=== PATIENT | female | born 2005 | race Caucasian/White ===

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

== ENCOUNTER 2024-06-04 11:02 | Outpatient (AMB) | payer OTHER, SELFPAY ==
--- NOTE | 2024-06-04 11:01 | MHC.PC.OV ---
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 Intake Note: New patient visit Insulation Board Back Tender Required: No Is last menstrual period known: No Allergies No Known Allergies [No Known Allergies*] Allergy (Verified 06/04/24 11:23) Medication List - Last Reconciled 06/04/24 by Amina Velez, GROUP SALES COORDINATOR-BC levetiracetam mg PO vit-iron fum-folic ac 66 mg iron- 1 mg tabs PO Tobacco use date assessed: 06/04/24 Dental Screening Dental Screen Date: 06/04/24 Did you have a dental visit in the last 12 months?: Yes Did you have a dental problem in the last 6 months where you did not have access to dental care?: No Was dental information given to patient?: Patient has dentist HPI HPI Comments History of Present Illness Details 18-year-old female with migraine with aura, mild persistent asthma, acne, constipation, MDD, epilepsy Social: return to work on Tuesday @ [employer]. Family hx: son Jagdish 02/2024 Surgery - tonsils and wisdom teeth Health Maintenance: ? PAP annual visit Fall 2023 Dr Johnson ? 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 Last November 2023, restarted driving; Routine f/u Neuro neuro also manages migraine which are controlled w/o meds. cont to be ffd by Derm for acne MDD feels well controlled w/ counselor w/o meds. denies PPD sx. Did see Cards x 1 during , reports rule out done and no need to f/u. Asthma - reports was an issue in childhood,no recent issues. does not have CAMILO and does not feel a need for this @ this time Has had one period since having baby, currently breast feeding, sexually active w/o protection. home preg test negative 1 week ago. Plan offered and declined in office preg test. edu about irregular bleeding during breast feeding cont care w/ team along w/ current meds RTO 1 year CPE or sooner as needed. PFSH Medical History (Updated 06/04/24 @ 12:58 by LEDA Ivy) Constipation Mild persistent asthma Acne Surgical History No pertinent past surgical history Family History Mother No problems noted. 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 1. Little interest or pleasure in doing things: not at all 2. Feeling down, depressed, or hopeless: not at all 3. Trouble falling or staying asleep, or sleeping too much: not at all 4. Feeling tired or having little energy: not at all 5. Poor appetite or overeating: not at all 6. Feeling bad about yourself - or that you are a failure or have let yourself or your family down: not at all 7. Trouble concentrating on things, such as reading the newspaper or watching television: not at all 8. Moving or speaking so slowly that other people could have noticed. Or the opposite - being so fidgety or restless that you have been moving around a lot more than usual: not at all 9. Thoughts that you would be better off or of hurting yourself in some way: not at all Total score: 0 Depression Screening Interpretation: Negative Depression Screening Done: Yes 10619 - PHQ-9 Billing: Yes Source: Developed by Drs. Chris Dolan, Neetu Coffman, Leonardo Michelle and colleagues, with an educational delrois from [employer]. Thrive Questionnaire Date Thrive assessed: 06/04/24 I am a: Patient What is your living situation today?: I have a steady place to live Within the past 12 months, did the food you bought not last and you didn't have the money to get more?: Never true Within the past 12 months, did you worry whether your food would run out before you got money to buy more?: Never true Do you have trouble paying for medicines?: No Do you have trouble getting transportation to medical appointments?: No Do you have trouble paying your heating and electricity bill?: No Do you have trouble taking care of your child, family member or friend?: No Do you have trouble with day-to-day activities such as bathing, preparing meals, shopping, managing finances, etc.?: No Are you currently unemployed and looking for a job?: No Are you interested in more education?: No Please select the resources that you would like help with: None Currently or been in a relationship where the following occur: No concerns reported THRIVE Score: 0 AUDIT C Alcohol Use Questionnaire (AUDIT-C) 1. How often do you have a drink containing alcohol?: Never 3. How often do you have six or more drinks on one occasion?: Never Total Score: 0 Score Reviewed/Action Taken: Yes CECILE-7 AMB Questionnaire CECILE-7 Date CECILE - 7 assessed: 06/04/24 Feeling nervous, anxious, or on edge: 0 = Not at all Not being able to stop or control worryin = Not at all Worrying too much about different things: 0 = Not at all Trouble relaxin = Not at all Being so restless that it is hard to sit still: 0 = Not at all Becoming easily annoyed or irritable: 0 = Not at all Feeling afraid as if something awful might happen: 0 = Not at all Total CECILE-7 score (0-4 normal; 5-9 mild; 10-14 moderate; 15-21 severe): 0 Source: Developed by Drs. Chris Dolan, Neetu Coffman, Leonardo Michelle and colleagues, with an educational deloris from [employer]. CECILE-7 Assessment Billing CECILE-7 Assessment Tool: CECILE-7 Assessment 39427 ACT Questionnaire In the past 4 weeks, how much of the time did your asthma keep you from getting as much done at work, school or at home?: None of the time During the past 4 weeks, how often have you had shortness of breath?: Not at all During the past 4 weeks, how often did your asthma symptoms wake you up at night or earlier than usual in the morning?: Not at all During the past 4 weeks, how often have you had to use your rescue inhaler or nebulizer medication?: Not at all How would you rate your asthma control during the past 4 weeks?: Completely controlled ACT Interpretation: Negative Score: 25 Review of Systems Const Details: Constitutional: Denies fever. Skin: Denies rash. Eye: Denies eye pain. ENMT: Denies sore throat and nasal congestion. Respiratory: Denies shortness of breath and cough. Gastrointestinal: Denies nausea, vomiting or abdominal pain. Cardiovascular: Denies chest pain and syncope. Genitourinary: Denies dysuria. Musculoskeletal: Denies back pain and extremity pain. Neurologic: Denies headaches, confusion, and weakness. Psychiatric: Denies suicidal thoughts and substance abuse. Allergy/ Immunologic: Denies impaired immunity. Physical exam (Primary Care) Vital Signs: Last Vital Signs Temp 98.6 F 06/04/24 11:12 Pulse 76 06/04/24 11:12 Resp 12 06/04/24 11:12 BP 102/64 06/04/24 11:12 Pulse Ox 96 06/04/24 11:12 Oxygen Delivery Method Room Air 06/04/24 11:12 BMI result Body Mass Index 27.1 BMI Assessment/Plan discussion: High BMI High, discussed plan: lifestyle Tobacco/Smoking Status: Tobacco use Status Tobacco use date assessed 06/04/24 06/04/24 11:13 Patient Tobacco Use Status Never used Tobacco 06/04/24 11:13 e-Cigarette/Vaping Use Never Used 06/04/24 11:13 PHQ-9: PHQ-9 Score PHQ-9: Total score 0 06/04/24 11:23 Depression Screening Interpretation: Negative Thrive Assessment: Date of Thrive Assessment Date Thrive assessed 06/04/24 06/04/24 11:13 Currently or been in a relationship where the following occur: No concerns reported Const Other: General: Well developed, well nourished, in no acute distress. Appears stated age. Head: Normocephalic, atraumatic. Eyes: Pupils are equal, round and reactive to light and accommodation. Conjunctivae are clear. Vision grossly normal. Ears: TMs clear AU, EACS WNL Nose: Patent, without discharge. Mouth: There are no ulcers or lesions noted. No inflammation, no post nasal drip, no plaques nor exudates. Neck: Supple, no adenopathy or thyromegaly. Lungs: Clear to auscultation bilaterally. No rales, rhonchi or wheeze noted. Good air flow in all patel. Heart: Regular rate and rhythm. No murmurs, click, rubs or gallops are noted. Abdomen: Bowel sounds present in all quadrants. The abdomen is soft, nontender, with no masses or organomegaly noted. No hernias are noted. Musculoskeletal: Joints are nontender, without swelling, redness, or effusions. Range of motion is observed to be normal. Pulses: Peripheral pulses are equal and palpable bilaterally. Extremities: No clubbing, cyanosis nor edema is noted. Neurologic: Gait and station normal. Cranial Nerves 2-12 intact. Motor strength grossly symmetrical and intact. No sensory loss. Balance normal. Skin: No rashes, ulcers, or lesions noted. Turgor is good. Skin color is good. Hair and nails are without abnormalities. Psych: Normal eye contact, affect and mood appropriate, and normal interactions. Patient is alert and appropriate to context. Assessment and Plan Assessment & Plan (1) Encounter for general adult medical examination without abnormal findings: Code(s): Z00.00 - Encounter for general adult medical examination without abnormal findings (2) MDD (major depressive disorder), recurrent episode: Code(s): F33.9 - Major depressive disorder, recurrent, unspecified Qualifiers: Major depression episode severity: mild Qualified Code(s): F33.0 - Major depressive disorder, recurrent, mild (3) Epilepsy: Code(s): G40.909 - Epilepsy, unspecified, not intractable, without status epilepticus Qualifiers: Epilepsy type: unspecified Intractability: not intractable Status epilepticus: without status epilepticus Qualified Code(s): G40.909 - Epilepsy, unspecified, not intractable, without status epilepticus (4) Mild persistent asthma: Code(s): J45.30 - Mild persistent asthma, uncomplicated Qualifiers: Asthma complication type: unspecified Qualified Code(s): J45.30 - Mild persistent asthma, uncomplicated (5) Migraine with aura: Code(s): G43.109 - Migraine with aura, not intractable, without status migrainosus Qualifiers: Status migrainosus presence: without status migrainosus Intractability: not intractable Qualified Code(s): G43.109 - Migraine with aura, not intractable, without status migrainosus (6) Acne: Code(s): L70.9 - Acne, unspecified Qualifiers: Acne type: acne vulgaris Qualified Code(s): L70.0 - Acne vulgaris (7) BMI 27.0-27.9,adult: Code(s): Z68.27 - Body mass index [BMI] 27.0-27.9, adult (8) Oligomenorrhea: Code(s): N91.5 - Oligomenorrhea, unspecified Qualifiers: Oligomenorrhea type: secondary Qualified Code(s): N91.4 - Secondary oligomenorrhea Patient Instructions: Walk-In Care (Urgent Care): We Make it Easy Walk-in for urgent medical issues such as: ? Seasonal Allergies ? Insect Bites ? Cough ? Diarrhea ? Acute Asthma Attacks ? Back, Knee or Joint Pain ? Ear Infection ? Fever without a Rash ? Headaches ? Nausea ? [place] Eye, Rash or Skin Irritation ? Sore Throat ? Sports Physicals ? Vomiting Most insurances are accepted. Patients do not need to be part of the [facility] to seek care at the walk-in clinic. Locations [facility] , [place] [address] ? [phone] [facility] Walk-In Care in [place] provides services to ages 18 and over. Open Tuesday-Tuesday: 8 a.m. to 5 p.m. and Tuesday: 9 a.m. to 3 p.m.* *Hours may vary due to staffing availability. To confirm Walk-In Care hours in [place], please call [phone]. [address] [place] [id number] ? [phone] [facility] Walk-In Care in [place] provides services to ages 12 and over. Open Tuesday-Tuesday: 8 a.m. to 5 p.m. Hours may vary due to staffing availability. To confirm Walk-In Care hours in [place], please call [phone]. LABORATORY SERVICES: [facility] [place] Primary Location [address] [place] [address] Tuesday through Tuesday 6:00 AM ? 5:00 PM Tuesday 7:00 AM ? 11:00 AM* [phone] The [facility] is centrally located near the front entrance of the [facility] for easy outpatient access. Convenient parking is provided for outpatients. *Hours may vary due to staffing availability. To confirm Laboratory hours for any location, please call [phone]. Offsite Location For your convenience, we offer offsite laboratory draw stations at the following locations: [address] [place] [address] ? [facility] [address], [address] Tuesday through Tuesday 7:30 AM ? 1:00 PM* [phone] *Hours may vary due to staffing availability. To confirm Laboratory hours for any location, please call [phone]. [place] ? [address] Tuesday through Tuesday 6:00 AM ? 3:30 PM* Tuesday 6:30 AM ? 3 PM* [phone] *Hours may vary due to staffing availability. To confirm Laboratory hours for any location, please call [phone]. [address] [facility] Tuesday through Tuesday 7:30 AM ? 4:00 PM* [phone] *Hours may vary due to staffing availability. To confirm Laboratory hours for any location, please call [phone] [place] [address] Tuesday through 9:00 AM ? 4:00 PM* *Hours may vary due to staffing availability. To confirm Laboratory hours for any location, please call [phone]. Appointments are not necessary. Walk-ins are welcome. Like all the departments throughout the [facility], our Lab undergoes frequent reviews to ensure the quality and accuracy of test results, and our staff takes special pride in its status as a nationally accredited facility. Patient Portal: ONE PATIENT. ONE RECORD. BETTER CARE. [facility] has a fully integrated, cutting-edge mobile electronic health information system that has revolutionized the way we care for our patients and manage our organization. This system improves communication and coordination enabling us to provide safe, higher-quality care, and an overall positive experience for staff and patients. Our first priority, as always, is to deliver the highest quality care possible. The system is running in the background supporting that priority. This portal is for all [facility] services and practices. If you are experiencing any technical difficulties with enrolling or logging into the Patient Portal please complete the [facility] Patient Portal Technical Support Form. [facility] now offers a new secure on-line interactive tool for patients to review their health information ? Patient Portal. This interactive web portal will enable patients and their families to take an active role in their care by providing easy, secure access to their health information via the internet. The Patient Portal provides patients with instant access to their health information, including laboratory results, medications, allergies, demographic information, visit history, and more. In addition to managing their own care, parents and health care proxies with authorized consent will appreciate the ability to access the records of those individuals for whom they provide care. Please note: if you wish to gain access (Proxy) to another patient?s portal, you will be required to come to the Medical Records Department in person at [facility]. Both the patient giving proxy access and the proxy will need to provide photo identification and complete the appropriate authorization. The Patient Portal also allows track their appointments online. The [facility] Patient Portal also saves patients time by allowing them to submit updates to their demographic and contact information prior to their visits. Portal email notifications will also alert patients to any new activity on their portal, such as test results and new appointments. In order to initially enroll in the [facility] Patient Portal, you will need to enter some required information including the following: ? your [facility] Medical Record number ? your personal home email address ? name ? date of Please note: In order to enroll in the [facility] Patient Portal, we need to have your email address on file in your electronic medical record. The email address needs to be specific for one person (yourself) in order for your Portal enrollment to be successful. You can update your email address in person with our Registration staff when you are registering for a hospital visit. Otherwise, you will need to come to the Health Information Management (Medical Records) Department at [facility]. We are open from Tuesday ? Tuesday from 7:30 a.m. ? 4:30 p.m. You will be required to present a photo id. Once you have successfully enrolled in the Patient Portal, you will receive a one-time user id and password for the Portal, sent to your email address. This will allow you to log into the Patient Portal within 99 hrs and reset your own logon id and password, and define personal security questions. Once your permanent login and password have been set, you can log into the [facility] Patient Portal at any time via the blue button above or from the Portal Logon button on any page of the [facility] website. [facility] encourage all of our patients to enroll in Patient Portal as it presents a valuable opportunity for patients and their families to actively participate in their care and stay healthy Welcome to [facility]. We look forward to working with you. Health screenings for women You should visit your health care provider from time to time, even if you are healthy. The purpose of these visits is to: Screen for medical issues Assess your risk for future medical problems Encourage a healthy lifestyle Update vaccinations and other preventive care services Help you get to know your provider in case of an illness Information Even if you feel fine, you should still see your provider for regular checkups. These visits can help you avoid problems in the future. For example, the only way to find out if you have high blood pressure is to have it checked regularly. High blood sugar and high cholesterol levels also may not have any symptoms in the early stages. A simple blood test can check for these conditions. There are specific times when you should see your provider or receive specific health screenings. The [place] Preventive Services Task Force publishes a list of recommended screenings. Below are screening guidelines for women ages 18 to 39. BLOOD PRESSURE SCREENING Your blood pressure should be checked at least once every 3 to 5 years if: Your blood pressure is in the normal range (top number less than 120 mm Hg and bottom number less than 80 mm Hg) You don't have risk factors for high blood pressure Ask your provider if you need your blood pressure checked more often if: The top number is 120 to 129 mm Hg or the bottom number is 70 to 79 mm Hg You have diabetes, heart disease, kidney problems, are overweight, or have certain other health conditions You have a first-degree relative with high blood pressure You are Black You had high blood pressure during a If the top number is 130 mm Hg or greater or the bottom number is 80 mm Hg or greater, this is considered stage 1 hypertension. Schedule an appointment with your provider to learn how you can reduce your blood pressure. Watch for blood pressure screenings in your area. Ask your provider if you can stop in to have your blood pressure checked. BREAST CANCER SCREENING Experts do not agree about the benefits of breast self-exams in finding breast cancer or saving lives. Talk to your provider about what is best for you. A screening mammogram is not recommended for most women under age 40. Your provider may discuss and recommend mammograms, MRI scans, or ultrasounds if you have an increased risk for breast cancer, such as: A mother or sister who had breast cancer at a young age (most often starting screening earlier than the age the close relative was diagnosed) You carry a high-risk genetic marker CERVICAL CANCER SCREENING Cervical cancer screening should start at age 21 years unless your provider advises otherwise. After the first test: Women ages 21 through 29 should have a Pap test every 3 years. Exoprts do not agree on whether HPV testing is recommended for this age group. Women ages 30 through 65 should be screened with either a Pap test every 3 years or the HPV test every 5 years or both tests every 5 years (called cotesting ). Women who have been treated for precancer (cervical dysplasia) should continue to have Pap tests for 20 years after treatment or until age 65, whichever is longer. If you have had your uterus and cervix removed (total hysterectomy), and you have not been diagnosed with cervical cancer or precancer (high grade cervical neoplasia), you do not need cervical cancer screening. CHOLESTEROL SCREENING Cholesterol screening should begin at: Age 45 for women with no known risk factors for coronary heart disease Age 20 for women with known risk factors for coronary heart disease Repeat cholesterol screening should take place: Every 5 years for women with normal cholesterol levels More often if changes occur in lifestyle (including weight gain and diet) More often if you have diabetes, heart disease, kidney problems, or certain other conditions DIABETES SCREENING You should be screened for diabetes starting at age 35 and then repeated every 3 years if you have no risk factors for diabetes. Screening may need to start earlier and be repeated more often if you have other risk factors for diabetes, such as: You have a first degree relative with diabetes. You are overweight or have obesity. You have high blood pressure, prediabetes, or a history of heart disease. Screening for diabetes should be done if you are planning to become and you are overweight and have other risk factors such as high blood pressure. DENTAL EXAM Go to the dentist once or twice every year for an exam and cleaning. Your dentist will evaluate if you need more frequent visits. EYE EXAM Have an eye exam every 5 to 10 years before age 40. If you have vision problems, have an eye exam every 2 years or more often if recommended by your provider. You should have an eye exam that includes an examination of your retina (back of your eye) at least every year if you have diabetes. IMMUNIZATIONS Commonly needed vaccines include: Flu shot: get one every year. COVID-19 vaccine: ask your provider what is best for you. Tetanus-diphtheria and acellular pertussis (Tdap) vaccine: have one at or after age 19 as one of your tetanus-diphtheria vaccines if you did not receive it as an adolescent. Tetanus-diphtheria: have a booster (or Tdap) every 10 years. Varicella vaccine: receive 2 doses if you never had chickenpox or the varicella vaccine. Hepatitis B vaccine: receive 2, 3, or 4 doses, depending on your exact circumstances. Measles, mumps, and rubella (MMR) vaccine: receive 1 to 2 doses if you are not already immune to MMR. Your provider can tell you if you are immune. Ask your provider about the human papillomavirus (HPV) vaccine if: You have not received the HPV vaccine in the past You have not completed the full vaccine series (you should catch up on this shot) Ask your provider if you should receive other immunizations if you have certain health problems that increase your risk for some diseases such as pneumonia. INFECTIOUS DISEASE SCREENING Women who are sexually active should be screened for chlamydia and gonorrhea up until age 25. Women 25 years and older should be screened for chlamydia and gonorrhea if at high risk. Screening for hepatitis C: All adults ages 18 to 79 should get a one-time test for hepatitis C. people should be screened at every . Screening for human immunodeficiency virus (HIV): All people ages 15 to 65 should get a one-time test for HIV. Depending on your lifestyle and medical history, you may also need to be screened for infections such as syphilis and HIV, as well as other infections. PHYSICAL EXAM All adults should visit their provider from time to time, even if they are healthy. The purpose of these visits is to: Screen for disease Assess your risk of future medical problems Encourage a healthy lifestyle Update your vaccinations and other preventive care services Maintain a relationship with a provider in case of an illness Your height, weight, and BMI should be checked at every exam. During your exam, your provider may ask you about: Depression and anxiety Diet and exercise Alcohol and tobacco use Safety issues, such as using seat belts, smoke detectors, and intimate partner violence Your medicines and risk for interactions SKIN SELF-EXAM Your provider may check your skin for signs of skin cancer, especially if you're at high risk, such as if you: Have had skin cancer before Have close relatives with skin cancer Have a weakened immune system OTHER SCREENING Talk with your provider about colon cancer screening if you have a strong family history of colon cancer or polyps, or if you have had inflammatory bowel disease or polyps yourself. Routine bone density screening of women under 40 is not recommended. Coding Level of Care Code Est Pt Prev Care 18-39y(60549) Diagnoses Encounter for general adult medical examination without abnormal findings Z00.00 Mild episode of recurrent major depressive disorder F33.0 Major depression episode severity: mild Nonintractable epilepsy without status epilepticus, unspecified epilepsy type G40.909 Epilepsy type: unspecified Intractability: not intractable Status epilepticus: without status epilepticus Mild persistent asthma, unspecified whether complicated J45.30 Asthma complication type: unspecified Migraine with aura and without status migrainosus, not intractable G43.109 Status migrainosus presence: without status migrainosus Intractability: not intractable Acne vulgaris L70.0 Acne type: acne vulgaris BMI 27.0-27.9,adult Z68.27 Secondary oligomenorrhea N91.4 Oligomenorrhea type: secondary Additional Codes CECILE-7 Assessment Billing - CECILE-7 Assessment Tool: CECILE-7 Assessment [id number] ([id number])
[2024-06-04 11:12] VITALS: BP 102/64; PULSE 76; RESP 12; TEMP 37; O2SAT 96; BMI 27.1
== END 2024-06-04 11:39 | disposition home or self-care (01) ==
PROVIDERS: PCP Nurse Practitioner Family; Visit Provider Nurse Practitioner Family
DX: Z00.00 Encounter for general adult medical examination without abnormal findings (principal); F33.0 Major depressive disorder, recurrent, mild; G40.909 Epilepsy, unspecified, not intractable, without status epilepticus; J45.30 Mild persistent asthma, uncomplicated; G43.109 Migraine with aura, not intractable, without status migrainosus; L70.0 Acne vulgaris; Z68.27 Body mass index [BMI] 27.0-27.9, adult; N91.4 Secondary oligomenorrhea
CPT/HCPCS: 99395

== ENCOUNTER 2024-07-25 08:53 | Outpatient (AMB) | payer OTHER, SELFPAY ==
--- NOTE | 2024-07-25 09:09 | A.OFFPC_ITS ---
Vital Signs 07/25/24 09:11 Height 5 ft 6 in Weight 200 lb 4 oz BMI 32.3 BP 110/70 Blood Pressure Location Rt brachial Position Sitting Pulse 58 Pulse Source Pulse Oximeter Pulse Oximetry (%) 98 Oxygen Delivery Method Room Air Intake Visit Reasons: Low blood sugar Intake Note: Patient is here to follow up on low blood sugar. Cut Off Operator Scorer Required: No Parole Or Probation Officer: Not Required per policy Accompanied by: Self / Same As Patient Allergies No Known Allergies [No Known Allergies*] Allergy (Verified 07/25/24 09:10) Medication List - Last Reconciled 07/25/24 by Amina Velez, WEATHERSEAL TECHNICIAN-BC levetiracetam mg PO vit-iron fum-folic ac 66 mg iron- 1 mg tabs PO Tobacco use date assessed: 07/25/24 Dental Screening Dental Screen Date: 06/04/24 HPI HPI Comments History of Present Illness Details 18-year-old female with migraine with au ra, mild persistent asthma, acne, constipation, MDD, epilepsy Here today with concerns for low blood sugar. She does not have a personal history of diabetes. She reports that these episodes started in November of 2023 when she was hospitalized for a seizure. She reports that the symptoms she experiences do feel like seizure auras, however the symptoms do not ever result in a seizure. During the episode in November when she was hospitalized, her blood sugar was tested and was told that it was very low and was treated successfully with food. Since this time she has had intermittent episodes, at 1st rare, now occurring more often. The symptoms are feeling dizzy, sick to stomach and inability to focus. They occur at the same time each day which is between 5184-0803. Last episode 2-3 days ago, treated w/ lemonade and in 15 minutes felt better. This is first time she has tried eating/drinking something to resolve these sx. Random glucose done today, 88 mg/dl hemoglobin A1c done in the office today 4.9% LMP remains irregular, home preg test negative. Breast feeding. Denies changes in wt, diet. Reports normal eating and drinking. Exam Awake alert oriented, no acute distress PERRLA Regular rate and rhythm Lung sounds clear to auscultation bilat Neuro exam within normal limits Plan Recommended to check some labs. She reports that each time that she has labs she has a seizure and has to go to work. She also is fearful of getting labs related to the occurrence of seizures. Be that as it may, we will start with home glucose monitoring. Advised to check blood glucose at the time of her symptoms. Also advised to keep a diary of any events such as prolonged fasting, timing in relation to last meal, etc.. I would like to see her back in 2 weeks' time to follow up on these symptoms, sooner as needed. This note is constructed using voice recognition software. While every effort has been made to ensure accuracy in tie in hand, still errors may have been included Sometimes, these errors may affect the content or meaning of the given sentence . Total time spent caring for the patient today was 30 minutes. This includes time spent before the visit reviewing the chart, time spent during the visit, and time spent after the visit on documentation [facility] Medical History (Updated 07/25/24 @ 09:41 by Amina Velez, [facility]) Constipation Mild persistent asthma Acne Surgical History No pertinent past surgical history Family History (Updated 07/25/24 @ 09:10 by DAR Moe) Mother No problems noted. 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 Chris Dolan, Neetu Coffman, Leonardo Michelle and colleagues, with an educational deloris from [employer]. Physical exam (Primary Care) Vital Signs: Last Vital Signs Pulse 58 07/25/24 09:11 BP 110/70 07/25/24 09:11 Pulse Ox 98 07/25/24 09:11 Oxygen Delivery Method Room Air 07/25/24 09:11 BMI result Body Mass Index 32.3 Tobacco/Smoking Status: Tobacco use Status Tobacco use date assessed 07/25/24 07/25/24 09:20 Patient Tobacco Use Status Never used Tobacco 07/25/24 09:20 e-Cigarette/Vaping Use Never Used 07/25/24 09:20 Thrive Assessment: Date of Thrive Assessment Date Thrive assessed 06/04/24 07/25/24 09:20 Results AMB Random Glucose (hemocue) AMB Random Glucose (hemocue) 88 mg/dL Last Edit by DAR Moe on 07/25/24 09:24 AMB Hemoglobin A1c AMB Hemoglobin A1c 4.9 % Last Edit by DAR Moe on 07/25/24 09:31 Results Reviewed Results Reviewed: Laboratory Last Values Random Glu (Clinic) 88 mg/dL 07/25/24 09:08 Hgb A1c (Clinic) 4.9 % (4.0-6.0) 07/25/24 09:08 Assessment and Plan Assessment & Plan (1) Hypoglycemia: Code(s): E16.2 - Hypoglycemia, unspecified Orders: Orders AMB Hemoglobin A1c Today Z13.9 - Encounter for screening, unspecified AMB Random Glucose (hemocue) Today Z13.9 - Encounter for screening, unspecified Medications: New blood sugar diagnostic (FreeStyle Lite Strips) As directed 100 ea 11RF E16.2 - Hypoglycemia, unspecified lancets (FreeStyle Lancets) As directed 100 ea 11RF E16.2 - Hypoglycemia, u nspecified blood-glucose meter (FreeStyle Lite Meter kit) As directed 1 ea 0RF E16.2 - Hypoglycemia, unspecified Coding Level of Care Code Est Pt Level 4 (04187) Diagnoses Hypoglycemia E16.2
[2024-07-25 09:11] VITALS: BP 110/70; PULSE 58; O2SAT 98; BMI 32.3
== END 2024-07-25 09:46 | disposition home or self-care (01) ==
PROVIDERS: PCP Nurse Practitioner Family; Visit Provider Nurse Practitioner Family
DX: Z13.9 Encounter for screening, unspecified (principal); E16.2 Hypoglycemia, unspecified
CPT/HCPCS: 82948; 83036; 99214

== ENCOUNTER → 2025-01-08 15:09 | Outpatient (REF) | payer OTHER, SELFPAY ==
--- OUTSIDE RECORDS SUMMARY | 2025-01-08 15:57 | XMS_ITS | Encounter Summary ---
Author Organization [facility] Address [address] [place] [address] Care Team Providers Care Wildland Firefighter Name Role Phone Rhiannon Coffman Primary Care Provider [phone] Reason for Visit * Reason Comments Skin Problem * Dermatology (Routine) - Authorized Specialty Diagnoses / Procedures Referred By Joni cotto Referred To Contact Dermatology Diagnoses Acne Procedures FOLLOW UP Sofya Hector MD [address] [place] [phone] Phone: tel: fax: Referral ID Status Reason Start Date Expiration Date V isits Requested Visits Authorized [id number] Authorized 12/11/2024 06/12/2026 6 6 Encounter Details Date Type Department Care Team (Late st Contact Info) Description 12/11/2024 11:00 AM EST Follow-Up [facility] [address] [place] [address], [place] [phone] Ticket Counter: Sofya Bay MD [address] [place] [id number] Acne vulgaris (Primary Dx); Eczema, unspecified type; Pityrosporum folliculitis Social History Tobacco Use Types Packs/Day Years Used Date Smoking Tobacco: Unknown Comments Unknown Sex and Gender Information Value Date Recorded Sex Assigned at Female 12/11/2024 11:02 AM EST Legal Sex Female 2:52 PM EDT Gender Identity Female 12/11/2024 11:02 AM EST Sexual Orientation Not on file documented as of this encounter Last Filed Vital Signs Vital Sign Reading Time Taken Comments Blood Pressure - - Pulse - - Temperature - - Respiratory Rate - - Oxygen Saturation - - Inhaled Oxygen Concentration - - Weight 90.7 kg (200 lb) 12/11/2024 11:09 AM EST Height 170.7 cm (5' 7.2 ) 12/11/2024 11:09 AM ES T Body Mass Index 31.14 12/11/2024 11:09 AM EST documented in this encounter Patient Instructions * Patient Instructions* Dierdre Booth MD - 12/11/2024 11:49 AM EST Images from the original note were not included. MORNING: - BP (Benzoyl peroxide) wash - list of products provided - Clindamycin 1% lotion - Ciclopirox cream - Highlighted importance of using these products together in the morning to avoid resistance, and to not use with tretinoin. EVENING: - tretinoin 0.025% cream. Apply a pea size amount to the whole face. Discussed side effects including dryness, so advised to gradually build up from every third night to nightly. OVER THE COUNTER BENZOYL PEROXIDE PRODUCTS Washes: [facility] Acne Control Cleanser (10%) 5 oz at [employer] for $5 Clean & Clear Continuous Control Acne Cleanser (10%) 5 oz at [employer] for $6 Oxy Wash Acne Treatment (10%) 6 oz at [employer] for $10 PanOxyl-4 Acne Creamy Wash (4%) 6 oz at [employer] for $10 - we prefer this (picture below) PanOxyl-8 Acne Creamy Wash (8%) 6 oz at [employer] for $10 PanOxyl Foaming Acne Wash (10%) 5.5 oz at [employer] for $11 Zapzyt Treatment Bar (10%) 4 oz at [employer] for $6 Gels: Acnefree Terminator 10 Medicated Spot Treatment (10%) 1 oz at [employer] for $6 Clean & Clear Persa-Gel 10 Maximum Strength (10%) 1 oz at [employer] for $6 Zapzyt Acne Gel (10%) 1 oz at [employer] for $6 We are providing you with this list of over the counter acne products containing benzoyl peroxide because most insurers no longer cover similar prescription products. These products are available in most pharmacist and can be obtained online. Be careful not to get benzoyl peroxide products in your eyes as they are very irritating. Also, benzoyl peroxide can bleach fabrics, so be sure to avoid getting it on your clothing and towels. [facility] Department of Dermatology Updated 05/27/2011 documented in this encounter Progress Notes * Sofya Hector MD - 12/11/2024 1:17 PM EST I saw and evaluated the patient. Case discussed with the resident/fellow and I agree with the findings and plan as documented in the resident's/fellow's note. * Deirdre Booth MD - 12/11/2024 11:12 AM EST DERMATOLOGY OFFICE VISIT CHIEF COMPLAINT: acne HPI: Emily Casillas is a 19 y.o. female who is seen in follow up at [facility] Department of Dermatology for above. Last visit 11/2023: - was , using benzoyl peroxide wash and ciclopirox cream for acne and pityrosporum Today: - she had her baby 9 months ago, a baby boy named Jagdish - she states her acne comes and goes. She gets pimples and cysts under the skin. She has not had her period return since having a baby - she is no longer breast feeding PAST DERMATOLOGIC HISTORY: No specialty comments available. MEDICATIONS, ALLERGIES, AND PAST MEDICAL HISTORY All were reviewed in patient's chart. PHYSICAL EXAM: The patient is a well-appearing female in no distress with a pleasant mood. A skin exam was performed today including the face, chest, back, which revealed: - jawline with scattered pink and red erythematous papules - evenly distributed red papules on the hairline, forehead, cheeks, chin, back, chest, and upper arms consistent with pityrosporum folliculitis. Improved from prior - closed comedones and papules distributed on the face, chest and back consistent with acne vulgaris - antecubital fossa with thin pink eczematous plaques ASSESSMENT & PLAN: Acne vulgaris and pityrosporum folliculitis, face, chest, back, poorly controlled The pityrosporum aspect of her acne seems improved on today's exam, however she continues to have inflammatory papules along the jaw line.Discussed treatment options including topicals, oral antibiotics, and spironolactone. Patient prefers to start with topicals. MORNING: - BP (Benzoyl peroxide) wash - list of products provided - Clindamycin 1% lotion - Highlighted importance of using these products together in the morning to avoid resistance, and to not use with tretinoin. - continue ciclopirox cream to face, back, chest and shoulders and leave on EVENING: - tretinoin 0.025% cream. Apply a pea size amount to the whole face. Discussed side effects including dryness, so advised to gradually build up from every third night to nightly. - If not improved with above, will consider doxycyline or spironolactone in future 2. Eczema, unspecified type - Start triamcinolone acetonide (KENALOG) 0.1% cream; Apply topically to the affected area 2 times a day as needed for rash. Dispense: 80 g; Refill: 2 - Reviewed correct use of topical steroids and potential side effects including, but not limited to, skin atrophy and dyspigmentation. We asked the patient to call us with any new or changing lesions, problems, or questions arising prior to the next visit. FOLLOW UP: Return in about 6 months (around 06/10/2025) for acne . Patient reviewed with and plan agreed with Dermatology Attending Dr Rogelio Booth MD Dermatology Resident documented in this encounter Plan of Treatment Upcoming Encounters Date Type Department Care Team (Late st Contact Info) Description 07/09/2025 10:00 AM EDT Follow-Up [facility] 4th Floor [address], [place] [address] Ticket Counter: Sofya Bay MD [address] [place] [phone] documented as of this encounter Visit Diagnoses Diagnosis Acne vulgaris- Primary Other acne Eczema, unspecified type Pityrosporum folliculitis documented in this encounter Care Teams Wildland Firefighter Relationship Specialty Start Date End Date Rhiannon Coffman [address] [place] [phone] PCP - General 08/26/23 documented as of this encounter
--- OUTSIDE RECORDS SUMMARY | 2025-01-08 15:57 | XMS_ITS | Referral Summary ---
Author Organization [facility] Address [address] [place] [address] Care Team Providers Care Auto Technician Name Role Phone Rhiannon Coffman Primary Care Provider [phone] Encounters Date Type Department Care Team Description 12/11/2024 11:00 AM EST Follow-Up [facility] 4th [address] [place] [address], [place] [address] Business Center Representative: Sofya Bay MD Acne vulgaris (Primary Dx); Eczema, unspecified type; Pityrosporum folliculitis from Last 3 Months Allergies No known active allergies Medications benzoyl peroxide 2.5 % gel SMARTSIG:Topical Daily 06/28/20 23 Active folic acid (FOLVITE) 1 mg tablet SMARTSI Tablet(s) By Mouth 4 Times Daily 06/30/20 23 Active levETIRAcetam (KEPPRA) 250 mg tablet SMARTSI Tablet(s) By Mouth Every 12 Hours 06/28/20 23 Active terconazole (TERAZOL 7) 0.4 % vaginal cream INSERT 1 APPLICATORFUL VAGINALLY, ONCE DAILY X7 DAYS - INSERT 1/2 WAY INTO VAGINA NIGHTLY X7 NIGHTS 07/12/20 23 Active amitriptyline (ELAVIL) 10 mg tablet SMARTSI Tablet(s) By Mouth Every Night 04/26/20 23 Active clindamycin (CLEOCIN T) 1 % lotionIndications: Acne vulgaris Apply topically to face nightly 60 mL 3 08/30/20 23 Active ciclopirox 1 % shampooIndications :Pityrosporum folliculitis Use shampoo to wash face, hairline, back, chest and arms daily in the shower 120 mL 3 08/30/20 23 Active Tri-Estarylla 0.18/0.215/0.25 mg-35 mcg (28) per tablet SMARTSI Tablet(s) By Mouth Daily 12/20/19 23 Active ondansetron (ZOFRAN ODT) 4 mg disintegrating tablet SMARTSI Tablet(s) By Mouth Daily PRN 08/26/20 23 Active rizatriptan (MAXALT) 10 mg tablet SMARTSI Tablet(s) By Mouth Every 3-4 Hours 05/31/20 23 Active SUMAtriptan (IMITREX) 100 mg tablet SMARTSI Tablet(s) By Mouth 2-3 Times Daily 04/25/20 23 Active clindamycin (CLEOCIN T) 1 % lotionIndications: Acne vulgaris Apply to face every morning for acne. 60 mL 3 12/11/19 25 Active tretinoin (RETIN-A) 0.025 % creamIndications:A cne vulgaris Apply a pea-sized amount to a completely dry face at bedtime. Start 2 nights per week and gradually increase to every night as tolerated. 45 g 3 12/11/19 25 Active triamcinolone acetonide (KENALOG) 0.1% creamIndications:E czema, unspecified type Apply topically to the affected area 2 times a day as needed for rash. 80 g 2 12/11/19 25 Active ciclopirox (LOPROX) 0.77 % creamIndications:P ityrosporum folliculitis Apply thin layer to face, back, chest and arms daily after showering 30 g 3 12/11/19 25 Active Active Problems No known active problems Social History Tobacco Use Types Packs/Day Years Used Date Smoking Tobacco: Unknown Comments Unknown Sex and Gender Information Value Date Recorded Sex Assigned at Female 12/11/2024 11:02 AM EST Legal Sex Female 2:52 PM EDT Gender Identity Female 12/11/2024 11:02 AM EST Sexual Orientation Not on file Last Filed Vital Signs Vital Sign Reading Time Taken Comments Blood Pressure - - Pulse - - Temperature - - Respiratory Rate - - Oxygen Saturation - - Inhaled Oxygen Concentration - - Weight 90.7 kg (200 lb) 12/11/2024 11:09 AM EST Height 170.7 cm (5' 7.2 ) 12/11/2024 11:09 AM ES T Body Mass Index 31.14 12/11/2024 11:09 AM EST Plan of Treatment Upcoming Encounters Date Type Department Care Team (Late st Contact Info) Description 07/09/2025 10:00 AM EDT Follow-Up [facility] 4th Floor [address], [place] [address] Business Center Representative: Sofya Bay MD [address] [place], [place] [phone] Insurance [employer] Care Teams Auto Technician Relationship Specialty Start Date End Date Rhiannon Coffman [address] [place] [phone] PCP - General 08/26/23
--- OUTSIDE RECORDS SUMMARY | 2025-01-08 15:57 | XMS_ITS | Clinical Summary ---
Author Organization [facility] Address [address] [phone] Care Team Providers Care Office Spec Name Role Phone Rhiannon Coffman Primary Care Provider Allergies No known active allergies Medications benzoyl [...] Active Active Problems No known active problems Encounters Date Type Department Care Team Description 12/11/2024 11:00 AM EST Follow-Up [facility] [address]th [address] [place] [address], [place] [address] Truss Driver Helper: Sofya Bay MD Acne vulgaris (Primary Dx); Eczema, unspecified type; Pityrosporum folliculitis from Last 3 Months Social History Tobacco Use Types Packs/Day Years [...] Info) Description 07/09/2025 10:00 AM EDT Follow-Up [facility] 4th Floor [address] [facility], [place] [phone] Truss Driver Helper: Sofya Bay MD [address] [place] [address] Health Maintenance Due Date Last Done Comments HIV Screening 2004 Hepatitis C Screening 2004 1 Week WCC 2004 1 Month WCC 2004 2 Month WCC 2004 4 Month WCC 2004 6 Month WCC 01/25/2005 9 Month WCC 04/25/2005 MMR Vaccines (1 of 1 - Standard series) 2005 12 Month WCC 08/05/2005 15 Month WCC 10/22/2005 18 Month WCC 01/20/2006 24 Month WCC 07/19/2006 30 Month WCC 11/22/2006 3 to 21 Year WCC 2007 Well Child Check 2007 Pneumococcal Vaccine: Pediatric (0-5 Years) and At-Risk Patients (6-64 Years) (1 of 2 - PCV) 2010 DTaP,Tdap,and Td Vaccines (2 - Td or Tdap) 09/03/2015 08/06/2015 Varicella Vaccines (1 of 2 - 13+ 2-dose series) 2017 Chlamydia Screening 2020 Hepatitis B Vaccines (1 of 3 - 19+ 3-dose series) 2023 COVID-19 Vaccine (4 - 2023-2 5 season) 2024 01/19/2022, 04/18/2021, 03/28/2021 Influenza Vaccine (#1) 2024 07/29/2020 Depression Screening and Follow-Up 11/28/2024 Social Drivers of Health Annual Screening 11/28/2024 RSV Vaccine (60+ years old a nd patients) (1 - 1-dose 75+ series) 2079 Meningococcal Vaccine Aged Out 08/06/2015 No [place] eligible based on patient's age to complete this topic HPV Vaccines Completed 07/17/2018, 06/30/2017 Insurance [employer] Care Teams Office Spec Relationship Specialty Start Date End Date Rhiannon Coffman [address] [place] [phone] PCP - General 08/26/23
== END ==
LOC: HO.SL 15:09
PROVIDERS: PCP Nurse Practitioner Family; Visit Provider Registered Nurse
DX: G47.33 Obstructive sleep apnea (adult) (pediatric) (principal)
CPT/HCPCS: 95806

== ENCOUNTER → 2025-01-08 19:00 | Outpatient (BNV) | payer OTHER, SELFPAY | PROVIDERS: PCP Nurse Practitioner Family; Visit Provider Internal Medicine | DX: R06.83 Snoring (principal); G47.10 Hypersomnia, unspecified | CPT/HCPCS: 95806 ==

== ENCOUNTER 2025-06-11 11:49 | Outpatient (AMB) | payer OTHER, SELFPAY ==
--- NOTE | 2025-06-11 11:51 | A.OFFPC_ITS ---
Vital Signs 06/11/25 11:58 Height 5 ft 6 in Weight 234 lb BMI 37.8 BP 108/68 Blood Pressure Location Rt brachial Position Sitting Respiration 12 Pulse 72 Pulse Source Pulse Oximeter Temp 97.5 F Temp Source Oral Pulse Oximetry (%) 98 Oxygen Delivery Method Room Air Intake Visit Reasons: cpe Intake Note: Cpe. Patient also did a home test this morning and came out positive but the line was light. Digital Marketing Associate Required: No Is last menstrual period known: Yes Last menstrual period: 05/21/25 Allergies No Known Allergies (No Known Allergies*) Allergy (Verified 06/11/25 12:06) Medication List - Last Reconciled 06/11/25 by MEKA Ivy-JULIÁN blood sugar diagnostic (FreeStyle Lite Strips) As directed blood-glucose meter (FreeStyle Lite Meter kit) As directed lancets (FreeStyle Lancets) As directed levetiracetam mg PO vit-iron fum-folic ac 66 mg iron- 1 mg tabs PO Tobacco use date assessed: 06/11/25 Dental Screening Dental Screen Date: 06/11/25 Did you have a dental visit in the last 12 months?: Yes Did you have a dental problem in the last 6 months where you did not have access to dental care?: No Was dental information given to patient?: Patient has dentist HPI HPI Comments History of Present Illness Details 19-year-old female with migraine with au ra, mild persistent asthma, acne, constipation, MDD, epilepsy (last Sz 07/2024) Social: new job at [employer] hx: son Jagdish 02/2024 Surgery - tonsils and wisdom teeth Health Maintenance: ?PAP annual visit Fall 2023 Dr Johnson ?Tdap 2023 Sleep study 12/2024 WNL Specialists: Straight Cutter Machine Neuro @ [facility], Visits 12/2024, 03/2025 RTO 6 mo Dermatology not active @ this time. counselor History of Present Illness - The patient is a 19 year old female pr esenting for a complete physical examination and possible confirmation. - Epilepsy managed with Keppra; stable s ezio last seizure episode in July. - Major depressive disorder with ongoing counseling; perceived as beneficial. - Childhood asthma, now mild and intermi ttent; no recent exacerbations. - Persistent migraines with aura; sympto ms stable. - Obesity with BMI at 37.8. - Chronic constipation with prior GI ref erral; currently stable. - Suspected after faint positi ve home test; menstruation irregular following discontinuation of . - Current dermatological care PRN Family History - No changes in family history were note d since last visit. Social History - Recently started a new employment term , previously worked at [employer]. - Reports cessation of . - Engages in therapy sessions for mental health support. Health Maintenance - Up-to-date tetanus shot with next due in 2023. - Ongoing use of vitamins. Review of Systems - Neurological: Reports stability of clay eleuterio since neurologic evaluation. - Respiratory: Denies any current asthma problems. - Genitourinary: Reports irregular menst ruation post . - Psychosocial: Positive ongoing estate planning counselor ing for depression. Physical Exam General: Well developed, well nourished, in no acute distress. Appears stated age. Head: Normocephalic, atraumatic. Eyes: Pupils are equal, round and reactive to light and accommodation. Conjunctivae are clear. Vision grossly normal. Ears: TMs clear AU, EACS WNL Nose: Patent, without discharge. Neck: Supple, no adenopathy or thyromegaly. Breast: Edu on SBE Lungs: Clear to auscultation bilaterally. No rales, rhonchi or wheeze noted. Good air flow in all patel. Heart: Regular rate and rhythm. No murmurs, click, rubs or gallops are noted. Abdomen: Bowel sounds present in all quadrants. The abdomen is soft, nontender, with no masses or organomegaly noted. No hernias are noted. : Deferred. Reviewed recommendations for routine DIE ATTACHER. Pulses: Peripheral pulses are equal and palpable bilaterally. Extremities: No clubbing, cyanosis nor edema is noted. Neurologic: Gait and station normal. Cranial Nerves 2-12 intact. Motor strength grossly symmetrical and intact. No sensory loss. Balance normal. Skin: No rashes, ulcers, or lesions noted. Turgor is good. Skin color is good. Hair and nails are without abnormalities. Psych: Normal eye contact, affect and mood appropriate, and normal interactions. Patient is alert and appropriate to context. Results - Tests and diagnostics for possible pre gnancy discussed, specifically urine test. Discussion Notes We discussed the main reasons for your visit, including your concerns about a possible . I talked about your history of epilepsy, depressive symptoms, and migraines with aura. For the , I clarified that if you cannot produce a urine sample today, the option exists to work with your AUTOMOBILES SALESPERSON to confirm the with a nurse visit. I reviewed your stable condition regarding asthma and the cessation of with the concerns tied to irregular menstruation signs. We discussed the enforcement of your tetanus vaccinations being up to date and maintaining vitamin supplements. Finally, we reinforced the benefit of continued engagement in counseling for mental health management. Follow-up recommendations involve confirming the potential with your AUTOMOBILES SALESPERSON and maintaining current health maintenance routines. Assessment and Plan 1. Epilepsy - Maintain Keppra regimen. 2. Major Depressive Disorder - Continue counseling sessions. 3. Mild Intermittent Asthma - Monitor; no recent issues. 4. Migraine with Aura - Stable; maintain current management. 5. Obesity - Encourage healthy lifestyle. 6. Constipation - Status stable; suggest dietary fiber. 7. Possible - Urine test advised. NEGATIVE results, pt made aware 8. Dermatological Management - Continue current creams. Patient Instructions - Follow up with your AUTOMOBILES SALESPERSON to confirm the once able. - Continue taking your vitamin daily. - Attend counseling regularly for your d epression. - Stick to your current asthma managemen t plan. - Maintain a healthy, balanced diet. - Come in for follow ups if any changes occur. RTO 1 YEAR CPE SOONER PRN Consent Patient was informed and verbally consented to the use of an ambient scribe for clinic note documentation during this visit. An additional 15 minutes was spent addressing the problem(s) noted at todays visit. This includes time spent before the visit reviewing the chart, time spent during the visit, and time spent after the visit on documentation reviewing laboratory results, diagnostic imaging, medications, performing a medically necessary evaluation, counseling on diagnoses, care coordination, ordering appropriate tests, ordering appropriate medications, review of tests performed by other providers, reporting test results with the patient, communication with other healthcare providers. [facility] Medical History (Updated 06/11/25 @ 12:05 by DANIEL Ivy) Acne Constipation Mild persistent asthma Surgical History No pertinent past surgical history Family History (Updated 07/25/24 @ 09:10 by DAR Moe) Mother No problems noted. 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 1. Little interest or pleasure in doing things: not at all 2. Feeling down, depressed, or hopeless: not at all 3. Trouble falling or staying asleep, or sleeping too much: not at all 4. Feeling tired or having little energy: several days 5. Poor appetite or overeating: not at all 6. Feeling bad about yourself - or that you are a failure or have let yourself or your family down: not at all 7. Trouble concentrating on things, such as reading the newspaper or watching television: not at all 8. Moving or speaking so slowly that other people could have noticed. Or the opposite - being so fidgety or restless that you have been moving around a lot more than usual: not at all 9. Thoughts that you would be better off or of hurting yourself in some way: not at all Total score: 1 Depression Screening Interpretation: Negative Depression Screening Done: Yes 53618 - PHQ-9 Billing: Yes Source: Developed by Drs. Chris Dolan, Neetu Coffman, Leonardo Michelle and colleagues, with an educational deloris from [employer]. Thrive Questionnaire Date Thrive assessed: 06/11/25 I am a: Patient What is your living situation today?: I have a steady place to live Within the past 12 months, did the food you bought not last and you didn't have the money to get more?: Never true Within the past 12 months, did you worry whether your food would run out before you got money to buy more?: Never true Do you have trouble paying for medicines?: No Do you have trouble getting transportation to medical appointments?: No Do you have trouble paying your heating and electricity bill?: No Do you have trouble taking care of your child, family member or friend?: No Do you have trouble with day-to-day activities such as bathing, preparing meals, shopping, managing finances, etc.?: No Are you currently unemployed and looking for a job?: No Are you interested in more education?: No Please select the resources that you would like help with: None Currently or been in a relationship where the following occur: No concerns reported THRIVE Score: 0 AUDIT C Alcohol Use Questionnaire (AUDIT-C) 1. How often do you have a drink containing alcohol?: Never 3. How often do you have six or more drinks on one occasion?: Never Total Score: 0 Score Reviewed/Action Taken: Yes CECILE-7 AMB Questionnaire CECILE-7 Date CECILE - 7 assessed: 06/11/25 Feeling nervous, anxious, or on edge: 1 = Several days Not being able to stop or control worryin = Not at all Worrying too much about different things: 1 = Several days Trouble relaxin = Several days Being so restless that it is hard to sit still: 0 = Not at all Becoming easily annoyed or irritable: 1 = Several days Feeling afraid as if something awful might happen: 0 = Not at all Total CECILE-7 score (0-4 normal; 5-9 mild; 10-14 moderate; 15-21 severe): 4 Source: Developed by Drs. Chris Dolan, Neetu Coffman, Leonardo Michelle and colleagues, with an educational deloris from [employer]. CECILE-7 Assessment Billing CECILE-7 Assessment Tool: CECILE-7 Assessment 03533 ACT Questionnaire In the past 4 weeks, how much of the time did your asthma keep you from getting as much done at work, school or at home?: None of the time During the past 4 weeks, how often have you had shortness of breath?: Not at all During the past 4 weeks, how often did your asthma symptoms wake you up at night or earlier than usual in the morning?: Not at all During the past 4 weeks, how often have you had to use your rescue inhaler or nebulizer medication?: Not at all ACT Interpretation: Negative Score: 20 Physical exam (Primary Care) Vital Signs: Last Vital Signs Temp 97.5 F 06/11/25 11:58 Pulse 72 06/11/25 11:58 Resp 12 06/11/25 11:58 BP 108/68 06/11/25 11:58 Pulse Ox 98 06/11/25 11:58 Oxygen Delivery Method Room Air 06/11/25 11:58 BMI result Body Mass Index 37.8 BMI Assessment/Plan discussion: High BMI High, discussed plan: lifestyle Tobacco/Smoking Status: Tobacco use Status Tobacco use date assessed 06/11/25 06/11/25 11:54 Patient Tobacco Use Status Never used Tobacco 06/11/25 11:54 e-Cigarette/Vaping Use Never Used 06/11/25 11:54 PHQ-9: PHQ-9 Score PHQ-9: Total score 1 06/11/25 11:54 Depression Screening Interpretation: Negative Thrive Assessment: Date of Thrive Assessment Date Thrive assessed 06/11/25 06/11/25 11:54 Currently or been in a relationship where the following occur: No concerns reported Results AMB Test Urine AMB Test Urine Negative Last Edit by Meeta Benz MA on 06/11 12:30 Coding Level of Care Code Est Pt Level 2 (32347) Est Pt Prev Care 18-39y(92049) Diagnoses Encounter for general adult medical examination without abnormal findings Z00.00 Mild episode of recurrent major depressive disorder F33.0 Major depression episode severity: mild Secondary oligomenorrhea N91.4 Oligomenorrhea type: secondary Migraine with aura and without status migrainosus, not intractable G43.109 Status migrainosus presence: without status migrainosus Intractability: not intractable Nonintractable epilepsy without status epilepticus, unspecified epilepsy type G40.909 Epilepsy type: unspecified Intractability: not intractable Status epilepticus: without status epilepticus Mild persistent asthma, unspecified whether complicated J45.30 Asthma complication type: unspecified Acne vulgaris L70.0 Acne type: acne vulgaris Obesity (BMI 30-39.9) E66.9 test negative Z32.02 Additional Codes CECILE-7 Assessment Billing - CECILE-7 Assessment Tool: CECILE-7 Assessment 13449 ([id number]) PHQ-9 - 81644 - PHQ-9 Billing: Yes ([id number]) Asthma Control Questionnaire - ACT Interpretation: Negative ([id number]) Assessment & Plan Assessment & Plan (1) Encounter for general adult medical examination without abnormal findings: Onset Date: ~06/11/25 Code(s): Z00.00 - Encounter for general adult medical examination without abnormal findings Category: Medical (2) MDD (major depressive disorder), recurrent episode: Code(s): F33.9 - Major depressive disorder, recurrent, unspecified Category: Medical Qualifiers: Major depression episode severity: mild Qualified Code(s): F33.0 - Major depressive disorder, recurrent, mild (3) Oligomenorrhea: Code(s): N91.5 - Oligomenorrhea, unspecified Category: Medical Qualifiers: Oligomenorrhea type: secondary Qualified Code(s): N91.4 - Secondary oligomenorrhea (4) Migraine with aura: Code(s): G43.109 - Migraine with aura, not intractable, without status migrainosus Category: Medical Qualifiers: Status migrainosus presence: without status migrainosus Intractability: not intractable Qualified Code(s): G43.109 - Migraine with aura, not intractable, without status migrainosus (5) Epilepsy: Code(s): G40.909 - Epilepsy, unspecified, not intractable, without status epilepticus Category: Medical Qualifiers: Epilepsy type: unspecified Intractability: not intractable Status epilepticus: without status epilepticus Qualified Code(s): G40.909 - Epilepsy, unspecified, not intractable, without status epilepticus (6) Mild persistent asthma: Code(s): J45.30 - Mild persistent asthma, uncomplicated Category: Medical Qualifiers: Asthma complication type: unspecified Qualified Code(s): J45.30 - Mild persistent asthma, uncomplicated (7) Acne: Code(s): L70.9 - Acne, unspecified Category: Medical Qualifiers: Acne type: acne vulgaris Qualified Code(s): L70.0 - Acne vulgaris (8) Obesity (BMI 30-39.9): Code(s): E66.9 - Obesity, unspecified Category: Medical (9) test negative: Code(s): Z32.02 - Encounter for test, result negative Plan . Orders: Orders AMB HCG Urine Test Today Z32.02 - Encounter for test, result negative Patient Instructions: Health screenings for women You should visit your health care provider from time to time, even if you are healthy. The purpose of these visits is to: Screen for medical issues Assess your risk for future medical problems Encourage a healthy lifestyle Update vaccinations and other preventive care services Help you get to know your provider in case of an illness Information Even if you feel fine, you should still see your provider for regular checkups. These visits can help you avoid problems in the future. For example, the only way to find out if you have high blood pressure is to have it checked regularly. High blood sugar and high cholesterol levels also may not have any symptoms in the early stages. A simple blood test can check for these conditions. There are specific times when you should see your provider or receive specific health screenings. The [place] Preventive Services Task Force publishes a list of recommended screenings. Below are screening guidelines for women ages 18 to 39. BLOOD PRESSURE SCREENING Your blood pressure should be checked at least once every 3 to 5 years if: Your blood pressure is in the normal range (top number less than 120 mm Hg and bottom number less than 80 mm Hg) You don't have risk factors for high blood pressure Ask your provider if you need your blood pressure checked more often if: The top number is 120 to 129 mm Hg or the bottom number is 70 to 79 mm Hg You have diabetes, heart disease, kidney problems, are overweight, or have certain other health conditions You have a first-degree relative with high blood pressure You are Black You had high blood pressure during a If the top number is 130 mm Hg or greater or the bottom number is 80 mm Hg or greater, this is considered stage 1 hypertension. Schedule an appointment with your provider to learn how you can reduce your blood pressure. Watch for blood pressure screenings in your area. Ask your provider if you can stop in to have your blood pressure checked. BREAST CANCER SCREENING Experts do not agree about the benefits of breast self-exams in finding breast cancer or saving lives. Talk to your provider about what is best for you. A screening mammogram is not recommended for most women under age 40. Your provider may discuss and recommend mammograms, MRI scans, or ultrasounds if you have an increased risk for breast cancer, such as: A mother or sister who had breast cancer at a young age (most often starting screening earlier than the age the close relative was diagnosed) You carry a high-risk genetic marker CERVICAL CANCER SCREENING Cervical cancer screening should start at age 21 years unless your provider advises otherwise. After the first test: Women ages 21 through 29 should have a Pap test every 3 years. Exoprts do not agree on whether HPV testing is recommended for this age group. Women ages 30 through 65 should be screened with either a Pap test every 3 years or the HPV test every 5 years or both tests every 5 years (called cotesting ). Women who have been treated for precancer (cervical dysplasia) should continue to have Pap tests for 20 years after treatment or until age 65, whichever is longer. If you have had your uterus and cervix removed (total hysterectomy), and you have not been diagnosed with cervical cancer or precancer (high grade cervical neoplasia), you do not need cervical cancer screening. CHOLESTEROL SCREENING Cholesterol screening should begin at: Age 45 for women with no known risk factors for coronary heart disease Age 20 for women with known risk factors for coronary heart disease Repeat cholesterol screening should take place: Every 5 years for women with normal cholesterol levels More often if changes occur in lifestyle (including weight gain and diet) More often if you have diabetes, heart disease, kidney problems, or certain other conditions DIABETES SCREENING You should be screened for diabetes starting at age 35 and then repeated every 3 years if you have no risk factors for diabetes. Screening may need to start earlier and be repeated more often if you have other risk factors for diabetes, such as: You have a first degree relative with diabetes. You are overweight or have obesity. You have high blood pressure, prediabetes, or a history of heart disease. Screening for diabetes should be done if you are planning to become and you are overweight and have other risk factors such as high blood pressure. DENTAL EXAM Go to the dentist once or twice every year for an exam and cleaning. Your dentist will evaluate if you need more frequent visits. EYE EXAM Have an eye exam every 5 to 10 years before age 40. If you have vision problems, have an eye exam every 2 years or more often if recommended by your provider. You should have an eye exam that includes an examination of your retina (back of your eye) at least every year if you have diabetes. IMMUNIZATIONS Commonly needed vaccines include: Flu shot: get one every year. COVID-19 vaccine: ask your provider what is best for you. Tetanus-diphtheria and acellular pertussis (Tdap) vaccine: have one at or after age 19 as one of your tetanus-diphtheria vaccines if you did not receive it as an adolescent. Tetanus-diphtheria: have a booster (or Tdap) every 10 years. Varicella vaccine: receive 2 doses if you never had chickenpox or the varicella vaccine. Hepatitis B vaccine: receive 2, 3, or 4 doses, depending on your exact circumstances. Measles, mumps, and rubella (MMR) vaccine: receive 1 to 2 doses if you are not already immune to MMR. Your provider can tell you if you are immune. Ask your provider about the human papillomavirus (HPV) vaccine if: You have not received the HPV vaccine in the past You have not completed the full vaccine series (you should catch up on this shot) Ask your provider if you should receive other immunizations if you have certain health problems that increase your risk for some diseases such as pneumonia. INFECTIOUS DISEASE SCREENING Women who are sexually active should be screened for chlamydia and gonorrhea up until age 25. Women 25 years and older should be screened for chlamydia and gonorrhea if at high risk. Screening for hepatitis C: All adults ages 18 to 79 should get a one-time test for hepatitis C. people should be screened at every . Screening for human immunodeficiency virus (HIV): All people ages 15 to 65 should get a one-time test for HIV. Depending on your lifestyle and medical history, you may also need to be screened for infections such as syphilis and HIV, as well as other infections. PHYSICAL EXAM All adults should visit their provider from time to time, even if they are healthy. The purpose of these visits is to: Screen for disease Assess your risk of future medical problems Encourage a healthy lifestyle Update your vaccinations and other preventive care services Maintain a relationship with a provider in case of an illness Your height, weight, and BMI should be checked at every exam. During your exam, your provider may ask you about: Depression and anxiety Diet and exercise Alcohol and tobacco use Safety issues, such as using seat belts, smoke detectors, and intimate partner violence Your medicines and risk for interactions SKIN SELF-EXAM Your provider may check your skin for signs of skin cancer, especially if you're at high risk, such as if you: Have had skin cancer before Have close relatives with skin cancer Have a weakened immune system OTHER SCREENING Talk with your provider about colon cancer screening if you have a strong family history of colon cancer or polyps, or if you have had inflammatory bowel disease or polyps yourself. Routine bone density screening of women under 40 is not recommended.
[2025-06-11 11:58] VITALS: BP 108/68; PULSE 72; RESP 12; TEMP 36.4; O2SAT 98; BMI 37.8
--- OUTSIDE RECORDS SUMMARY | 2025-06-11 13:09 | XMS_ITS | Referral Summary ---
Author Organization [facility] Address [address] [place] [address] Care Team Providers Care Croze Cutter Name Role Phone Rhiannon Coffman Primary Care Provider [phone] Allergies No known active allergies Medications benzoyl [...] Contact Info) Description 07/09/2025 10:00 AM EDT Office Visit [facility] 4th Floor [address] [facility], [place] [address] Insurance Claims Processor: Aniya Hector, Sofya De Santiago MD [address] [place] [address] Insurance [employer] Care Teams Croze Cutter Relationship Specialty Start Date End Date Rhiannon Coffman [address] [place] [id number] PCP - General 08/26/23
--- OUTSIDE RECORDS SUMMARY | 2025-06-11 13:09 | XMS_ITS | Clinical Summary ---
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 Name Role Phone Unavailable Primary Care Provider Unavailabl e Social History Tobacco Use Types Packs/Day Years Used Date Smoking Tobacco: Never Assessed Comments Unknown Sex and Gender Information Value Date Recorded Sex Assigned at Not on file Legal Sex Female 4:27 PM EDT Gender Identity Not on file Sexual Orientation Not on file Plan of Treatment Health Maintenance Due Date Last Done Comments MMR Vaccines (1 of 1 - Stand cristina series) 2005 Varicella Vaccines (1 of 2 - 13+ 2-dose series) 2017 HPV Vaccines (1 - 3-dose series) 2019 Men B Vaccine (1 of 2 - Standard) 2020 DTaP,Tdap,and Td Vaccines (1 - Tdap) 2022 Hepatitis B Vaccines (1 of 3 - 19+ 3-dose series) 2023 COVID-19 Vaccine (1 - 2023-2 5 season) 2024 Influenza Vaccines (#1) 2025 HIB Vaccines Aged Out No longer eligi ble based on patient's age to complete this topic Hepatitis A Vaccines Aged Out No long er eligible based on patient's age to complete this topic IPV Vaccines Aged Out No longer eligi ble based on patient's age to complete this topic Meningococcal Vaccine Aged Out No [place] eligible based on patient's age to complete this topic Pneumococcal Vaccine Aged Out No long er eligible based on patient's age to complete this topic
== END 2025-06-11 12:40 | disposition home or self-care (01) ==
LOC: HO.HMCFM 11:50
PROVIDERS: PCP Nurse Practitioner Family; Visit Provider Nurse Practitioner Family
DX: Z00.00 Encounter for general adult medical examination without abnormal findings (principal); G40.909 Epilepsy, unspecified, not intractable, without status epilepticus; F33.0 Major depressive disorder, recurrent, mild; Z68.37 Body mass index [BMI] 37.0-37.9, adult; E66.9 Obesity, unspecified; N91.4 Secondary oligomenorrhea; G43.109 Migraine with aura, not intractable, without status migrainosus; J45.30 Mild persistent asthma, uncomplicated; L70.0 Acne vulgaris; Z32.02 Encounter for pregnancy test, result negative

== ENCOUNTER → 2025-06-11 11:49 | Outpatient (BNVA) | payer OTHER, SELFPAY | PROVIDERS: PCP Nurse Practitioner Family; Visit Provider Nurse Practitioner Family | DX: Z00.00 Encounter for general adult medical examination without abnormal findings (principal); J45.20 Mild intermittent asthma, uncomplicated; G43.109 Migraine with aura, not intractable, without status migrainosus; E66.9 Obesity, unspecified; G40.909 Epilepsy, unspecified, not intractable, without status epilepticus; K59.00 Constipation, unspecified; F33.0 Major depressive disorder, recurrent, mild; N91.4 Secondary oligomenorrhea; J45.30 Mild persistent asthma, uncomplicated; L70.0 Acne vulgaris; Z68.37 Body mass index [BMI] 37.0-37.9, adult | CPT/HCPCS: 81025; 96127; 96160; 99212; 99395 ==